=== PATIENT | male | born 1980 | race Caucasian/White ===

== ENCOUNTER 2023-08-02 16:51 | Inpatient (IN) | payer BC ==
[~2023-08-02] VITALS: Ht 185.4 cm; Wt 115.2 kg
[2023-08-02 17:56] VITALS: BP 140/79; PULSE 76; RESP 18; TEMP 98.5; O2SAT 98
[2023-08-02 19:00] LABS: BASOPHILS % (AUTO) 0.4 % (0.0-2.0); EOSINOPHILS # (AUTO) 0.2 K/uL (0-0.4); EOSINOPHILS % (AUTO) 1.6 % (0.0-4.0); HEMATOCRIT 41.3 % (36-52); HEMOGLOBIN 14.5 g/dL (12.0-18.0); LYMPHOCYTES # (AUTO) 2.6 K/uL (2.0-11.5); MEAN CORPUSCULAR HEMOGLOBIN 30 pg (27-31); MEAN CORPUSCULAR HGB CONC 35 g/dL (33-37); MEAN CORPUSCULAR VOLUME 85.7 fL (80-94); MONOCYTES % (AUTO) 9.2 % (1.7-9.3); NEUTROPHILS # (AUTO) 7.4 K/uL (1.8-7.7); NEUTROPHILS % (AUTO) 65.8 % (42.2-75.2); PLATELET COUNT (AUTO) 239 K/uL (140-450); RED BLOOD CELL COUNT(AUTO) 4.82 MIL/uL (4.20-6.10); RED CELL DISTRIBUTION WIDTH 13.4 % (11.6-13.7); WHITE BLOOD COUNT (AUTO) 11.3 K/uL (4.8-10.8)
[2023-08-02] MEDS: FAMOTIDINE 20 MG TAB PO ONE (19:00)
[2023-08-02] MEDS: ALUMINUM HYD/MAG/SIMETHICONE 30 ML UDC PO ONE (19:01)
[2023-08-02 19:52] LABS: ANION GAP 13.4 (8-16); CALCIUM 8.6 mg/dL (8.5-10.1); CARBON DIOXIDE 27.6 mmol/L (21-32); CREATININE 1.1 mg/dL (0.6-1.3)
[2023-08-02] MEDS: ASPIRIN 81 MG TAB.CHEW PO ONE (20:34)
[2023-08-02] MEDS ORDERED: ACETAMINOPHEN 325 MG TAB PO PRN (20:50)
[2023-08-02] MEDS ORDERED: NITROGLYCERIN 0.4 MG TAB SL PRN (20:50)
[2023-08-02] MEDS ORDERED: HYDROcodone/APAP 5/325 MG 1 TAB TAB PO PRN (20:50)
[2023-08-02] MEDS ORDERED: ALBUTEROL 0.083% 2.5 MG/3 ML NEBU INH PRN (20:50)
[2023-08-02] MEDS: LORazepam 1 MG TAB PO ONE (21:10)
[2023-08-02] MEDS: METOPROLOL 25 MG TAB PO SCH (21:16)
[2023-08-02] MEDS: ATORVASTATIN 20 MG TAB PO SCH (21:17)
[2023-08-02 21:35] VITALS: BP 153/91; PULSE 84; RESP 18; TEMP 97.8; O2SAT 96
[2023-08-02] MEDS: NACL 0.9% 1,000 ML IV SCH (21:43)
[2023-08-02] MEDS ORDERED: OXCA300T PO (21:46)
[2023-08-02] MEDS ORDERED: BUS5 PO (21:50)
[2023-08-02] MEDS ORDERED: CITA40TA13 PO (21:50)
[2023-08-02] MEDS ORDERED: OLAN2.5T1 PO (21:50)
[2023-08-02] MEDS: LORazepam 2 MG/ML VIAL IVP PRN (22:09)
[2023-08-02 23:15] VITALS: RESP 18; O2SAT 96
[2023-08-03] VITALS (10 sets, daily range): BP systolic 145–160; BP diastolic 82–109; PULSE 72–93; RESP 18–20; TEMP 97–98; O2SAT 95–99
[2023-08-03 05:42] LABS: BASOPHILS # (AUTO) 0.1 K/uL (0.00-0.22); BASOPHILS % (AUTO) 0.5 % (0.0-2.0); EOSINOPHILS % (AUTO) 0.4 % (0.0-4.0); HEMATOCRIT 42.3 % (36-52); HEMOGLOBIN 14.7 g/dL (12.0-18.0); LYMPHOCYTES # (AUTO) 2.2 K/uL (2.0-11.5); LYMPHOCYTES % (AUTO) 19.7 % (20.5-51.1); MEAN CORPUSCULAR HEMOGLOBIN 30 pg (27-31); MEAN CORPUSCULAR HGB CONC 35 g/dL (33-37); MEAN CORPUSCULAR VOLUME 86.5 fL (80-94); MONOCYTES # (AUTO) 0.7 K/uL (0.8-1.0); MONOCYTES % (AUTO) 5.9 % (1.7-9.3); NEUTROPHILS # (AUTO) 8.2 K/uL (1.8-7.7); NEUTROPHILS % (AUTO) 73.5 % (42.2-75.2); PLATELET COUNT (AUTO) 243 K/uL (140-450); RED BLOOD CELL COUNT(AUTO) 4.89 MIL/uL (4.20-6.10); RED CELL DISTRIBUTION WIDTH 13.6 % (11.6-13.7); WHITE BLOOD COUNT (AUTO) 11.2 K/uL (4.8-10.8)
[2023-08-03] MEDS: hydrALAZINE 20 MG/ML VIAL IVP PRN (05:44)
[2023-08-03 06:38] LABS: ANION GAP 11.9 (8-16); CARBON DIOXIDE 28.1 mmol/L (21-32)
[2023-08-03] MEDS: PANTOPRAZOLE 40 MG TABEC PO SCH (08:46)
[2023-08-03] MEDS: ASPIRIN 81 MG TAB.CHEW PO SCH (08:46)
[2023-08-03] MEDS: busPIRone 5 MG TAB PO SCH (11:07)
[2023-08-03] MEDS: ONDANSETRON 4 MG/2 ML VIAL IVP PRN (18:38)
[2023-08-03] MEDS: carvediloL 12.5 MG TAB PO SCH (20:03)
[2023-08-03] MEDS: OXcarbazepine 150 MG TAB PO SCH (20:03)
[2023-08-03] MEDS: OLANZapine 2.5 MG TAB PO SCH (20:03)
[2023-08-04] VITALS (7 sets, daily range): BP systolic 140–166; BP diastolic 80–100; PULSE 79–96; RESP 18; TEMP 97–97.7; O2SAT 93–98
[2023-08-04] MEDS: MORPHINE SULFATE 2 MG/ML SYR IVP PRN (09:03)
[2023-08-04] MEDS: ATORVASTATIN 20 MG TAB PO SCH (09:04)
[2023-08-04] MEDS: CITALOPRAM 20 MG TAB PO SCH (09:05)
[2023-08-04] MEDS ORDERED: CARV12.5 PO (18:05)
== END 2023-08-04 18:25 | disposition home or self-care (01) | DRG 282 ==
LOC: MED 16:51 → MTU 20:50
PROVIDERS: ADMIT Family Medicine; ATTEND Family Medicine
DX: I21.4 Non-ST elevation (NSTEMI) myocardial infarction (principal); I16.0 Hypertensive urgency; I10 Essential (primary) hypertension; E78.5 Hyperlipidemia, unspecified; Z79.899 Other long term (current) drug therapy
CPT/HCPCS: 36415; 71045; 80048; 84484; 85025; 87081; 93005; 99285; J0360; J2060; J2270; J2405; Q0092